=== PATIENT | female | born 1990 | race Two or more races ===

== ENCOUNTER 2017-11-09 00:53 | Inpatient (IN) | payer OTHER ==
[~2017-11-09] VITALS: Ht 154.9 cm; Wt 72.1 kg
[2017-11-11] MEDS ORDERED: ZANTAC300 MG PO (07:36)
== END 2017-11-11 11:58 | DRG 781 ==
LOC: ER 00:53 → OB/GYN 08:12 → SEC-K 08:12 → OB/GYN 16:15
PROC: 4A1HXCZ Monitoring of Products of Conception, Cardiac Rate, External Approach (ICD-10-PCS; principal; 2017-11-09)
DX: O26.893 Other specified pregnancy related conditions, third trimester (principal); K52.89 Other specified noninfective gastroenteritis and colitis; E86.0 Dehydration

== ENCOUNTER 2017-12-26 07:40 | Inpatient (IN) | payer OTHER ==
[~2017-12-26] VITALS: Ht 154.9 cm; Wt 162.0 kg
[~2017-12-26 07:40] MED LIST: ZANTAC300 MG PO
[2017-12-26] MEDS ORDERED: PRENATABS FA T1 EACH PO (08:29)
== END 2017-12-28 14:33 | DRG 775 ==
LOC: OB/GYN 07:40 → LDR 08:06 → OB/GYN 14:53
PROC: 10E0XZZ Delivery of Products of Conception, External Approach (ICD-10-PCS; principal; 2017-12-26)
PROC: 3E033VJ Introduction of Other Hormone into Peripheral Vein, Percutaneous Approach (ICD-10-PCS; 2017-12-26)
PROC: 4A033R1 Measurement of Arterial Saturation, Peripheral, Percutaneous Approach (ICD-10-PCS; 2017-12-26)
PROC: 4A1HXCZ Monitoring of Products of Conception, Cardiac Rate, External Approach (ICD-10-PCS; 2017-12-26)
DX: O48.0 Post-term pregnancy (principal); Z3A.40 40 weeks gestation of pregnancy; Z37.0 Single live birth

== ENCOUNTER → 2022-09-02 | Day surgery (SDC) | payer OTHER ==
[~2022-09-02] VITALS: Ht 180.3 cm; Wt 68.0 kg
[~2022-09-02] MED LIST changes: +PRENATABS FA T1 EACH PO
== END | disposition home or self-care (01) ==
LOC: ER 00:06 → CIR.AMB 08:39 → SEC-K 08:39 → CIR.AMB 08:39 → ER 08:39 → EDSTATUS 12:15 → SEC-K 14:52 → O/R 14:52
PROVIDERS: ATTEND General Practice
DX: O03.4 Incomplete spontaneous abortion without complication (principal); O72.2 Delayed and secondary postpartum hemorrhage; Z20.822 Contact with and (suspected) exposure to COVID-19

== ENCOUNTER 2023-08-22 11:50 | Outpatient (CLI) | payer OTHER | END 2023-08-22 11:52 | disposition home or self-care (01) | LOC: PRENATAL 11:50 | PROVIDERS: ATTEND Obstetrics & Gynecology Maternal & Fetal Medicine | DX: O36.80X0 Pregnancy with inconclusive fetal viability, not applicable or unspecified (principal); Z36.82 Encounter for antenatal screening for nuchal translucency; Z36.9 Encounter for antenatal screening, unspecified; Z3A.14 14 weeks gestation of pregnancy ==

== ENCOUNTER 2023-09-27 10:47 | Outpatient (CLI) | payer OTHER | END 2023-09-27 10:48 | disposition home or self-care (01) | LOC: PRENATAL 10:47 | PROVIDERS: ATTEND Obstetrics & Gynecology Maternal & Fetal Medicine | DX: O35.3XX0 Maternal care for (suspected) damage to fetus from viral disease in mother, not applicable or unspecified (principal); O44.00 Complete placenta previa NOS or without hemorrhage, unspecified trimester; Z3A.20 20 weeks gestation of pregnancy ==

== ENCOUNTER 2024-02-06 13:30 | Inpatient (IN) | payer OTHER ==
[~2024-02-06] VITALS: Ht 154.9 cm; Wt 81.2 kg
[2024-02-13] MEDS ORDERED: AMPICILLIN SODIUM 2,000 MG VIAL ONE (07:53)
[2024-02-13] MEDS ORDERED: MISOPROSTOL 25 MCG/4 ML GEL.W.APPL VAG ONE (08:30)
[2024-02-13] MEDS ORDERED: AMPICILLIN SODIUM 2,000 MG VIAL IV ONE (08:30)
[2024-02-13 08:53] LABS: HEMATOCRIT 37.3 % (36.0-45.00); HEMOGLOBIN 12.7 g/dL (12.0-15.00); MEAN CELL VOLUME 81.4 fL (80.00-100.00); MEAN CORPUSCULAR HEMOGLOBIN 27.7 pg (27.00-32.0); MEAN CORPUSCULAR HGB CONC 34.1 g/dl (32.0-36.0); PLATELET COUNT 195 K/uL (150-450); RED BLOOD COUNT 4.58 M/uL (4.00-6.00)
[2024-02-13 08:59] LABS: PH,URINE 5.5 (5.0-8.0); URINE APPEARANCE Clear; URINE BILIRRUBIN Negative (NEGATIVE); URINE BLOOD Negative; URINE COLOR Yellow; URINE GLUCOSE Negative (NEGATIVE); URINE LEUKOCYTE Negative; URINE NITRATE Negative; URINE PROTEIN Negative (NEGATIVE); URINE UROBILINOGEN 0.2 E.U./dl
[2024-02-13 09:03] LABS: URINE BACTERIA 66.7 uL (0.0-1933); URINE EPITHELIAL CELLS 5.7 uL (0.0-38.8)
[2024-02-13 09:11] LABS: URINE RBC 0.7 uL (0.0-20.8); URINE WBC 1.2 uL (0.0-23.2)
[2024-02-13 09:19] LABS: INR < 0.93; PROTHROMBIN TIME 9.4 SECONDS (9.0-11.5)
[2024-02-13 09:43] LABS: BILIRUBIN TOTAL 0.48 mg/dL (0.3-1.2); CALCIUM 9.2 mg/dL (8.5-10.1); CREATININE SERUM 0.46 mg/dL (0.55-1.02); GFR 156.44; GLOBULINA 3.5 G/DL (2.4-3.5); POTASSIUM 4.17 mEq/L (3.5-5.1); TOTAL PROTEIN 6.5 gm/dL (6.4-8.2)
[2024-02-13] MEDS ORDERED: RINGERS SOLUTION,LACTATED 1,000 ML IV SCH (09:45)
[2024-02-13] MEDS ORDERED: PRENATABS RX T1 EACH PO (10:29)
[2024-02-13] MEDS ORDERED: AMPICILLIN SODIUM 1,000 MG VIAL ONE (11:02)
[2024-02-13] MEDS ORDERED: LABETALOL HCL 100 MG/20 ML ML IV ONE (11:45)
[2024-02-13] MEDS ORDERED: MORPHINE SULFATE 4 MG/ML CARTRIDGE IV ONE (11:45)
[2024-02-13] MEDS ORDERED: AMPICILLIN SODIUM 1,000 MG VIAL IV SCH ×2 (12:00)
[2024-02-13] MEDS ORDERED: OXYTOCIN 500 ML IV SCH (13:30)
[2024-02-13] MEDS ORDERED: OXYTOCIN 20 UNITS/500ML RL PIGGYBAG IV ONE (13:43)
[2024-02-13] MEDS ORDERED: OXYTOCIN 20 UNITS/1000ML RL PIGGYBAG IV ONE (14:25)
[2024-02-13] MEDS ORDERED: ERYTHROMYCIN BASE 1 GM TUBE OP ONE ×2 (14:25→18:00)
[2024-02-13] MEDS ORDERED: CHLORHEXIDINE GLUCONATE 120 ML BOTTLE TOP ONE ×2 (14:26→18:30)
[2024-02-13] MEDS ORDERED: LIDOCAINE HCL 1% 10ML VIAL ONE (14:26)
[2024-02-13] MEDS ORDERED: METHYLERGONOVINE MALEATE 0.2 MG/ML AMPUL ONE (16:42)
[2024-02-13] MEDS ORDERED: CARBOPROST TROMETHAMINE 250 MCG/ML AMPUL IM ONE (16:45)
[2024-02-13] MEDS ORDERED: LABETALOL HCL 200 MG TABLET PO SCH (17:00)
[2024-02-13] MEDS ORDERED: IBUprofen 400 MG TABLET PO PRN (18:00)
[2024-02-13] MEDS ORDERED: MAGNESIUM SULFATE IN WATER 0.04 GM/ML IV.SOLN IV ONE (18:13)
[2024-02-13] MEDS ORDERED: CARBOPROST TROMETHAMINE 250 MCG/ML AMPUL IM STA (18:23)
[2024-02-13] MEDS ORDERED: METHYLERGONOVINE MALEATE 0.2 MG/ML AMPUL IM STA (18:23)
[2024-02-13] MEDS ORDERED: MAGNESIUM SULFATE IN WATER 500 ML IV SCH (18:30)
[2024-02-13] MEDS ORDERED: OXYTOCIN 1,000 ML IV ONE (18:30)
[2024-02-13 19:06] LABS: HEMATOCRIT 39.3 % (36.0-45.00); HEMOGLOBIN 13.1 g/dL (12.0-15.00); MEAN CELL VOLUME 82.1 fL (80.00-100.00); MEAN CORPUSCULAR HEMOGLOBIN 27.4 pg (27.00-32.0); MEAN CORPUSCULAR HGB CONC 33.4 g/dl (32.0-36.0); PLATELET COUNT 196 K/uL (150-450); RED BLOOD COUNT 4.79 M/uL (4.00-6.00); RED CELL DISTRIBUTION WIDTH 14.9 % (11.5-14.5)
[2024-02-13 20:48] LABS: ABG PH 7.326 (7.35-7.45); ABG pCO2 43.3 mmHg (35-45); BASE EXCESS -3.8 mmol/l; BICARBONATE 22.1 mmol/l (23-25); SaO2 66.4 %; Tco2 23.5 mmol/l
[2024-02-13 22:03] LABS: o2 21 %
[2024-02-14] MEDS ORDERED: PNV,CALCIUM 72/IRON/FOLIC ACID 1 TAB TABLET PO SCH (09:00)
== END 2024-02-15 15:15 | disposition home or self-care (01) | DRG 807 ==
LOC: LDR 02-13 06:46 → OB/GYN 02-13 17:12
PROVIDERS: ADMIT Obstetrics & Gynecology; ATTEND Obstetrics & Gynecology
PROC: 10E0XZZ Delivery of Products of Conception, External Approach (ICD-10-PCS; principal; 2024-02-13)
PROC: 3E033VJ Introduction of Other Hormone into Peripheral Vein, Percutaneous Approach (ICD-10-PCS; 2024-02-13)
PROC: 3E0P7VZ Introduction of Hormone into Female Reproductive, Via Natural or Artificial Opening (ICD-10-PCS; 2024-02-13)
PROC: 4A1HXCZ Monitoring of Products of Conception, Cardiac Rate, External Approach (ICD-10-PCS; 2024-02-13)
DX: O13.4 Gestational [pregnancy-induced] hypertension without significant proteinuria, complicating childbirth (principal); Z37.0 Single live birth; Z3A.39 39 weeks gestation of pregnancy; Z20.822 Contact with and (suspected) exposure to COVID-19